=== PATIENT | female | born 1965 | race Caucasian/White ===

== ENCOUNTER 2017-06-27 19:46 | Emergency (ER) | payer OTHER ==
[2017-06-27] MEDS: ALBUTEROL 0.5% (NEB) 2.5 MG/0.5 ML AMP INH (21:08)
[2017-06-27] MEDS: IPRATROPIUM (NEB) 0.5 MG/2.5 ML AMP INH (21:08)
[2017-06-27] MEDS: METHYLPREDNISOLONE 125 MG INJ IV (21:10)
[2017-06-27 21:37] LABS: ADD MAN DIFF? NO
[2017-06-27 21:40] LABS: BASOPHIL # 0.1 10^3/ul (0.0-0.1); BASOPHILS % 0.6 % (0.0-2.0); EOSINOPHILS # 0.2 10^3/ul (0.0-0.5); EOSINOPHILS % 2.2 % (0.0-7.0); HEMATOCRIT 40.2 % (37.0-47.0); HEMOGLOBIN 12.8 g/dl (12.0-16.0); LYMPHOCYTES % 42.8 % (15.0-51.0); MEAN CORPUSCULAR HEMOGLOBIN 26.7 pg (29.0-33.0); MEAN CORPUSCULAR HGB CONC 31.8 g/dl (32.0-37.0); MEAN CORPUSCULAR VOLUME 83.8 fl (82.0-101.0); MEAN PLATELET VOLUME 11.8 fl (7.4-10.4); MONOCYTE # 0.9 10^3/ul (0.3-0.9); MONOCYTES % 9.6 % (0.0-11.0); NEUTROPHIL # 4.2 10^3/ul (1.6-7.5); NEUTROPHILS % 44.6 % (39.0-77.0); PLATELET COUNT 222 10^3/UL (140-415); RED CELL DISTRIBUTION WIDTH 13.3 % (11.5-14.5)
[2017-06-27 21:40] LABS: WHITE BLOOD COUNT 9.3 10^3/ul (4.8-10.8)
[2017-06-27 22:05] LABS: ANION GAP 15 (8-16); BLOOD UREA NITROGEN 13 mg/dl (7-20); CALCIUM 9.6 mg/dl (8.4-10.2); CARBON DIOXIDE 28 mmol/L (21-31); CHLORIDE 101 mmol/L (97-110); CREATININE 0.68 mg/dl (0.44-1.00); GLUCOSE 223 mg/dl (70-220); SODIUM 140 mmol/L (135-144)
[2017-06-27 22:20] LABS: TROPONIN-I < 0.012 ng/ml (0.00-0.12)
[2017-06-27 22:22] LABS: D-DIMER < 220.00 ng/ml (<460)
[2017-06-28] MEDS: AZITHROMYCIN 250 MG TAB PO (00:07)
== END 2017-06-28 01:14 | disposition home or self-care (01) ==
LOC: E/R 06-28 01:14
DX: R07.9 Chest pain, unspecified (principal); J45.901 Unspecified asthma with (acute) exacerbation; J18.1 Lobar pneumonia, unspecified organism; E11.65 Type 2 diabetes mellitus with hyperglycemia; I10 Essential (primary) hypertension; Z79.4 Long term (current) use of insulin
CPT/HCPCS: 71045; 80048; 82962; 84484; 85025; 85378; 93005; 94644; 96374; 99284-25

== ENCOUNTER 2017-06-30 10:54 | Emergency (ER) | payer OTHER ==
[2017-06-30] MEDS: ALBUTEROL 0.083% (NEB) 2.5 MG/3 ML AMP HHN (11:50)
[2017-06-30] MEDS: IPRATROPIUM (NEB) 0.5 MG/2.5 ML AMP HHN (11:50)
[2017-06-30] MEDS: LEVOFLOXACIN 750 MG TABLET PO (12:09)
== END 2017-06-30 12:52 | disposition home or self-care (01) ==
LOC: E/R 10:54
DX: J18.9 Pneumonia, unspecified organism (principal); E11.9 Type 2 diabetes mellitus without complications; I10 Essential (primary) hypertension; Z79.4 Long term (current) use of insulin
CPT/HCPCS: 94664; 99284-25

== ENCOUNTER 2018-02-25 12:59 | Emergency (ER) | payer OTHER ==
[2018-02-25] MEDS: DEXAMETHASONE 10 MG/ML 1 ML INJ IM (14:58)
[2018-02-25] MEDS: ALBUTEROL 0.083% (NEB) 2.5 MG/3 ML AMP HHN (15:10)
[2018-02-25] MEDS: IPRATROPIUM (NEB) 0.5 MG/2.5 ML AMP HHN (15:10)
== END 2018-02-25 15:45 | disposition home or self-care (01) ==
LOC: FTE 12:59
DX: R05 Cough (principal); J45.909 Unspecified asthma, uncomplicated; I10 Essential (primary) hypertension
CPT/HCPCS: 94664; 96372; 99284-25